=== PATIENT | male | born 1995 | race Hispanic/Latino ===

== ENCOUNTER 2017-03-08 11:52 | Emergency (ER) | payer SELFPAY ==
[2017-03-08] MEDS ORDERED: AZITHROMYCIN 250 MG TABLET PO ONE (13:18)
[2017-03-08] MEDS ORDERED: IPRATROPIUM/ALBUTEROL SULFATE 3 ML SOLUTION IH ONE (13:23)
== END 2017-03-08 21:36 | disposition home or self-care (01) ==
LOC: EDH 11:52
DX: J18.9 Pneumonia, unspecified organism (principal)
CPT/HCPCS: 87804; 94640

== ENCOUNTER 2018-07-07 19:10 | Inpatient (IN) | payer SELFPAY ==
[~2018-07-07] VITALS: Ht 170.2 cm; Wt 75.8 kg
[2018-07-07] MEDS ORDERED: CEFAZOLIN SODIUM 1 GM VIAL ONE (19:58)
[2018-07-07] MEDS ORDERED: LIDOCAINE HCL 1% 20 ML VIAL ONE (19:58)
[2018-07-07] MEDS ORDERED: TETANUS/DIPHTHERIA TOXOID [ADULT] 0.5 ML VIAL IM ONE (19:59)
[2018-07-07] MEDS ORDERED: SODIUM CHLORIDE 0.9% 100 ML IV ONE (19:59)
[2018-07-07 21:13] LABS: BASOPHILS % (AUTO) 1.1 % (0.0-5.0); EOSINOPHILS % (AUTO) 2.9 % (0.0-8.0); HEMATOCRIT 38.9 % (42-54); LYMPHOCYTES % (AUTO) 32.5 % (21.0-51.0); MEAN CORPUSCULAR HGB CONC 35.2 g/dL (32.0-36.0); MEAN CORPUSCULAR VOLUME 90.9 fL (79-99); NEUTROPHILS % (AUTO) 56.5 % (40.0-77.0); NUCLEATED RED BLOOD CELLS 0.1 % (0.0-0.19); PLATELET COUNT (AUTO) 215 K/uL (130-400); RED BLOOD CELL COUNT(AUTO) 4.27 MIL/uL (4.50-6.20); RED CELL DISTRIBUTION WIDTH 13.1 % (11.0-15.5)
[2018-07-07 21:29] LABS: ALBUMIN 3.7 g/dL (3.5-5.0); BILIRUBIN,TOTAL 0.7 mg/dL (0.2-1.0)
[2018-07-07 21:31] LABS: POTASSIUM 2.7 mmol/L (3.5-5.1)
[2018-07-07 21:45] LABS: AMPHET/METH SCREEN,URINE NEGATIVE (NEGATIVE); BARBITURATE SCREEN, URINE NEGATIVE (NEGATIVE); BENZODIAZEPINES SCREEN,URINE NEGATIVE (NEGATIVE); CANNABINOID SCREEN,URINE NEGATIVE (NEGATIVE); COCAINE SCREEN,URINE POSITIVE (NEGATIVE); OPIATE SCREEN,URINE NEGATIVE (NEGATIVE); PHENCYCLIDINE SCREEN,URINE NEGATIVE (NEGATIVE)
[2018-07-07] MEDS ORDERED: POTASSIUM CHLORIDE 20 MEQ ERTAB PO ONE (22:38)
[2018-07-07] MEDS ORDERED: ONDANSETRON HCL 4 MG/2 ML VIAL IVP PRN (23:45)
[2018-07-08] VITALS (22 sets, daily range): BP systolic 123–156; BP diastolic 67–96
[2018-07-08] MEDS ORDERED: CEFAZOLIN SODIUM 1 GM VIAL IVP SCH
[2018-07-08] MEDS ORDERED: CEFAZOLIN SODIUM 1 GM VIAL ONE ×2 (05:13→14:24)
[2018-07-08] MEDS ORDERED: SODIUM CHLORIDE 0.9% 100 ML IV ONE (05:14)
[2018-07-08] MEDS ORDERED: ONDANSETRON HCL 4 MG/2 ML VIAL ONE ×2 (05:50→12:42)
[2018-07-08] MEDS ORDERED: MORPHINE SULFATE 4 MG/1ML SYG ONE (05:51)
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
[2018-07-08] MEDS: LACTATED RINGERS 1000ML 1,000 ML IV SCH ×3 (11:00→15:00)
[2018-07-08] MEDS: CEFAZOLIN SODIUM 1 GM VIAL IVP SCH ×2 (12:37→17:53)
--- NOTE | 2018-07-08 12:38 | NUR ---
NOTE OUT OF ROOM FOR SURGERY AT THIS TIME. STABLE UPON LEAVING BUT A LITTLE NERVOUS FOR HE HAS NEVER HAD SURGERY. FAMILY AT HIS BEDSIDE.
[2018-07-08] MEDS ORDERED: MIDAZOLAM HCL 1 MG/ML 2ML VIAL ONE (12:42)
[2018-07-08] MEDS ORDERED: SUCCINYLCHOLINE 200MG/10ML SYR ONE (12:42)
[2018-07-08] MEDS ORDERED: DEXAMETHASONE SOD PHOSPHATE 10MG/ML 1ML VIAL ONE ×2 (12:42→12:45)
[2018-07-08] MEDS ORDERED: GLYCOPYRROLATE 1 MG/5 ML SYRINGE ONE (12:42)
[2018-07-08] MEDS ORDERED: LIDOCAINE PF 2% 5ML ABBOJECT ONE (12:42)
[2018-07-08] MEDS ORDERED: ROCURONIUM 10MG/1ML SYR 10 MG/ML ML ONE (12:43)
[2018-07-08] MEDS ORDERED: NEOSTIGMINE 5MG/5ML SYR IV ONE (12:43)
[2018-07-08] MEDS ORDERED: PROPOFOL 10 MG/ML 20ML VIAL IV ONE (12:43)
[2018-07-08] MEDS ORDERED: FENTANYL CITRATE PF 50 MCG/1 ML 2ML VIAL ONE ×2 (12:43→14:13)
[2018-07-08 14:15] LABS: CREATININE 1.1 mg/dL (0.5-1.5)
[2018-07-08] MEDS ORDERED: MEPERIDINE-PF 25 MG/ML SYG ONE ×2 (15:01→15:20)
[2018-07-08] MEDS ORDERED: LABETALOL 20 MG/4 ML DISP.SYRIN IV ONE (15:54)
[2018-07-08] MEDS ORDERED: HYDRALAZINE HCL 20 MG/ML VIAL ONE (15:57)
--- NOTE | 2018-07-08 16:45 | NUR ---
NOTE CAME BACK FROM SURGERY WITH DR WYATT. UNDERWENT REPAIR OF TENDON 3 DIGIT RIGHT HAND. HAS DRESSING TO SITE AND BANDAGE PLUS IT IS POSITIONED WITH SPLINT IN AN ABDUCTING MANNER PER DR WYATT AND IT IS SUPPOSED TO STAY LIKE THIS FOR A WHILE. HE WILL STAY OVERNIGHT AND DC HOME TOMORROW. STABLE AT THIS TIME. CAN FEEL FINGER TIPS RIGHT HAND AND CAN WIGGLE FINGERS A LITTLE BUT ENCOURAGED NOT TO SINCE THEY HAVE BEEN POSITIONED WITH SPLINT. WILL RESUME DIET AND OTHER ORDERS.
[2018-07-08] MEDS: MORPHINE SULFATE 4 MG/1ML SYG IVP PRN ×2 (17:54→21:08)
[2018-07-09] VITALS: BP 139/84
[2018-07-09] MEDS: MORPHINE SULFATE 4 MG/1ML SYG IVP PRN (00:47)
[2018-07-09] MEDS: CEFAZOLIN SODIUM 1 GM VIAL IVP SCH ×2 (00:47→06:53)
[2018-07-09 03:54] VITALS: BP 141/78
--- NOTE | 2018-07-09 08:00 | NUR ---
INSTRUCTIONS DISCHARGE INSTRUCTIONS GIVEN TO PATIENT USING TEACH BACK. NEW PRESCRIPTIONS PLACED IN PACKET ALONG WITH ALL PRINTED INFORMATION AND MD INSTRUCTIONS. HE WILL CALL DR. WYATT'S OFFICE TOMORROW FOR APPOINTMENT TIME SINCE TODAY IS A HOLIDAY AND THE OFFICE IS CLOSED. NO QUESTIONS OR CONCERNS VOICED. PENDING RIDE HOME.
== END 2018-07-09 09:00 | disposition home or self-care (01) | DRG 514 ==
LOC: EDH 19:10 → EDHIP 19:11 → OBSVTOIN 19:11 → EDHIP 21:48 → UNDOADMOB 21:48 → 4AH 07-08 08:24
PROVIDERS: ADMIT Surgery Plastic and Reconstructive Surgery; ATTEND Surgery Plastic and Reconstructive Surgery
PROC: 0LQ70ZZ Repair Right Hand Tendon, Open Approach (ICD-10-PCS; principal; 2018-07-08 14:00)
PROC: 3E0234Z Introduction of Serum, Toxoid and Vaccine into Muscle, Percutaneous Approach (ICD-10-PCS; 2018-07-08 14:00)
DX: S56.423A Laceration of extensor muscle, fascia and tendon of right middle finger at forearm level, initial encounter (principal); Y93.89 Activity, other specified; Y92.89 Other specified places as the place of occurrence of the external cause; Y99.8 Other external cause status; Z23 Encounter for immunization
CPT/HCPCS: 36415; 73130; 80048; 80053; 80305; 83735; 85025; 90714; A4218; A4565; G0378; G0480; J0330; J0360; J0690; J1100; J2001; J2175; J2250; J2270; J2405; J2704; J2710; J3010; J3490; J7030; J7120

== ENCOUNTER 2020-08-17 19:10 | Emergency (ER) | payer SELFPAY ==
[~2020-08-17] VITALS: Ht 167.6 cm; Wt 93.9 kg
[2020-08-17 19:16] VITALS: BP 140/83
[2020-08-17] MEDS ORDERED: KETOROLAC 30MG VIAL (30MG/ML) IM ONE (22:30)
[2020-08-17] MEDS ORDERED: IBUP-2070 PO (23:56)
[2020-08-17] MEDS ORDERED: ACET1TAB25 PO (23:56)
[2020-08-17] MEDS ORDERED: CYCL5TAB PO (23:56)
== END 2020-08-18 00:36 | disposition home or self-care (01) ==
LOC: EDH 19:10
DX: S82.832A Other fracture of upper and lower end of left fibula, initial encounter for closed fracture (principal); Z79.899 Other long term (current) drug therapy; W18.39XA Other fall on same level, initial encounter; Y93.89 Activity, other specified; Y92.89 Other specified places as the place of occurrence of the external cause; Y99.8 Other external cause status
CPT/HCPCS: 29515; 73610; 96372; 99283; J1885